=== PATIENT | female | born 1965 | race Caucasian/White ===

== ENCOUNTER 2018-01-01 17:55 | Emergency (ER) | payer MEDICAID ==
[2018-01-01 17:55] VITALS: BMI 30.9
[2018-01-01 18:22] VITALS: BP 132/81; PULSE 84; RESP 16; TEMP 98.5; O2SAT 98
--- NOTE | 2018-01-01 19:34 | ED PDOC ---
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 Patient reports pain started when she was getting up this morning from bed and worsens with movement. She reports she fell 3 years ago and a lumbar x-ray was ordered with negative results. Patient denies any recent trauma or fall, hematuria or any other urinary symptoms, fever, saddle anesthesia, back disfunction, weakness or numbness. She denies taking any medication for pain. LMP: December 16, 2017 PMD: Vicente Polk Past Medical History Reviewed: Historical Data, Nursing Documentation, Vital Signs Vital Signs: Last Vital Signs Temp 98.5 F 01/01/18 18:18 Pulse 84 01/01/18 18:18 Resp 16 01/01/18 18:18 BP 132/81 01/01/18 18:18 Pulse Ox 98 01/01/18 18:18 - Medical History PMH: No Chronic Diseases - Surgical History Surgical History: (x2) Other surgeries: Ovarian cyst removal - Family History Family History: States: Unknown Family Hx - Social History Ex-Smoker (has not smoked in the last 12 months): No Alcohol: None Drugs: Denies - Immunization History Hx Tetanus Toxoid Vaccination: No Hx Influenza Vaccination: No Hx Pneumococcal Vaccination: No - Home Medications Home Medications: Ambulatory Orders Medication Instructions Recorded Meloxicam [Mobic] 15 mg PO DAILY PRN #10 tab 01/01/18 Methocarbamol [Robaxin] 750 mg PO BID PRN #10 tab 01/01/18 - Allergies Allergies/Adverse Reactions: Allergies Allergy/AdvReac Type Severity Reaction Status Date / Time No Known Allergies Allergy Verified 01/01/18 18:18 Review of Systems ROS Statement: Except As Marked, All Systems Reviewed And Found Negative Constitutional: Negative for: Fever, Weakness Genitourinary Female: Negative for: Hematuria Musculoskeletal: Positive for: Back Pain (right lower back pain) Neurological: Negative for: Weakness, Numbness Physical Exam - Physical Exam Comments: GENERAL APPEARANCE: Patient is awake, alert, oriented x 3, in no acute distress. SKIN: Warm, dry; (-) cyanosis. EYES: (-) conjunctival pallor. ENMT: Mucous membranes moist. NECK: (-) tenderness, (-) stiffness, (-) lymphadenopathy. CHEST AND RESPIRATORY: (-) rales, (-) rhonchi, (-) wheezes; breath sounds equal bilaterally. HEART AND CARDIOVASCULAR: (-) irregularity; (-) murmur, (-) gallop. ABDOMEN AND GI: Soft; (-) tenderness; (-) palpable mass. BACK: (+) Right sciatic niche tenderness, (+) lumbar tenderness, (-) mild spasm , (-) direct bony tenderness, (-) deformity, (-) midline tenderness, (-) CVA tenderness, (-) bilaterally. EXTREMITIES: (-) deformity. Distal pulses good bilaterally. NEURO AND PSYCH: Mental status as above. Intact sensation bilaterally; normal strength in extension of the knees, plantar and dorsiflexion of the toes. DTRs symmetric. - ECG O2 Sat by Pulse Oximetry: 98 (RA) Pulse Ox Interpretation: Normal Medical Decision Making Medical Decision Making: Time: 1851 Initial Impression: Acute back pain, consider Sciatica. Initial Plan: --Flexeril 10 mg PO --Toradol 30 mg IM --Ultram 50 mg PO --Tylenol 650mg PO --Re-evaluation 2014 On re-evaluation, patient reports improvement of symptoms, denies weakness, numbness, bowel or bladder dysfunction. On exam, patient remains AAOx3, in no acute distress. On exam, neck is supple, lungs CTA, cardiac RRR, abdomen is soft and non-tender, neuro exam shows no focal findings. VSS, stable for discharge. Diagnostic results d/w the patient in great detail. Dx of acute back pain/strain , consider sciatica d/w the patient. Based on history, exam and diagnostic results plan will be for discharge and outpatient follow up. Advised to follow up with primary care physician in 1-2 days without fail. Advised to take medication as prescribed. Return to the emergency room at any time for any new or worsening symptoms. Patient states she fully agrees with and understands discharge instructions. States that she agrees with the plan and disposition. Verbalized and repeated discharge instructions and plan. I have given the patient opportunity to ask any additional questions. Scribe Attestation: Documented by Dawna Ochoa, acting as a scribe for Elizabeth Bishop PA-C Provider Scribe Attestation: All medical record entries made by the Scribe were at my direction and personally dictated by me. I have reviewed the chart and agree that the record accurately reflects my personal performance of the history, physical exam, medical decision making, and the department course for this patient. I have also personally directed, reviewed, and agree with the discharge instructions and disposition. Disposition - Clinical Impression Clinical Impression: Back strain, Low back pain, Back pain, Sciatica - Patient ED Disposition Is Patient to be Admitted: No Counseled Patient/Family Regarding: Diagnosis, Need For Followup, Rx Given - Disposition Referrals: Santos Coats MD [Staff Provider] - Disposition: Routine/Home Disposition Time: 20:17 Condition: STABLE Additional Instructions: FOLLOW UP WITH PMD/ORTHO IN 1-2 DAYS WITHOUT FAIL. RETURN TO ED WITH ANY NEW OR WORSENING SYMPTOMS. Prescriptions: Meloxicam [Mobic] 15 mg PO DAILY PRN #10 tab PRN Reason: Pain, Moderate (4-7) Methocarbamol [Robaxin] 750 mg PO BID PRN #10 tab PRN Reason: Muscle Spasm Instructions: Low Back Pain in Adults, Back Exercises, Sciatica (DC), Sciatica Exercises, Muscle Strain Forms: Puddle (Sri Lankan) Print Language: MALTESE - POA Present On Arrival: None
== END 2018-01-01 20:37 | disposition home or self-care (01) ==
LOC: H.ER 17:55
DX: S39.012A Strain of muscle, fascia and tendon of lower back, initial encounter (principal); M54.5 Low back pain; M54.40 Lumbago with sciatica, unspecified side; Z87.891 Personal history of nicotine dependence
CPT/HCPCS: 81025; 96372; 99283; J1885